=== PATIENT | female | born 1940 | race Caucasian/White ===

== ENCOUNTER → 2016-11-20 | Outpatient (CLI) | payer OTHER ==
--- NOTE | 2016-11-20 17:43 | MA ---
Screening Digital Mammogram With iCAD Analysis Clinical Indications: Routine screening. Her mother and maternal cousin were diagnosed with breast ca ncer in their 40s. Technique: Standard cephalocaudal projections are obtained. Digital breast tomosynthesis was performe d in the MLO projection with reconstruction at 1.0 mm slice thickness and composite MLO views reconst ructed. This examination is processed by the iCAD computer aided detection system. Comparison: November 2015, November 2014, November 2013, November 2012, November 2011, November 2010, 2009, October 2008. Breast density: Type B; Scattered fibroglandular densities. Findings: CAD was reviewed. No masses, suspicious calcifications or secondary signs of malignancy are seen. There has been no significant change in the appearance of either breast. Impression: Negative mammogram. BI-RADS 1. Recommendation: Routine mammographic screening in one year. [facility] will send a result letter to the patient. Negative mammography should not preclude additional workup of a clinically suspicious finding. The patient's information is entered into a reminder system with a target due date for her next mammo gram.
== END ==
LOC: FIMAGING 12:59
DX: Z12.31 Encounter for screening mammogram for malignant neoplasm of breast (principal); Z80.3 Family history of malignant neoplasm of breast
CPT/HCPCS: G0202

== ENCOUNTER 2017-04-22 22:50 | Emergency (ER) | payer OTHER ==
[2017-04-22 22:58] VITALS: BP 150/86; PULSE 77; RESP 16; TEMP 97.7; O2SAT 93
[2017-04-22] MEDS ORDERED: LIDOCAINE 2% JELLY 20 ML (UROJECT) TP ONE (23:08)
[2017-04-22] MEDS ORDERED: LIDOCAINE 2% JELLY 5 ML TUBE ONE (23:09)
--- NOTE | 2017-04-22 23:35 | EDPHY ---
H & P Stated Complaint: fall, skin tear Time Seen by Provider: 04/22/17 23:13 HPI/ROS: Chief Complaint: Fall, chin laceration, arm laceration HPI: 76-year-old woman with a history of atrial fibrillation, on Eliquis tripped and fell, landing on her left arm and striking her chin. She had no loss of consciousness. She sustained a skin tear to her left forearm as abrasion on her chin. She denies headache, no neck pain. No nausea or vomiting. No vision or hearing changes. No confusion. ROS: 10 point Review of Systems is negative except as noted in the HPI. PMH: Atrial fibrillation Medications: Eliquis Allergies: Morphine Social History: No smoking, occasional alcohol, no recreational drug use Family History: non-contributory Physical Exam: Gen: Awake, Alert, Airway Intact HEENT: Head: Atraumatic Eyes: PERRLA, EOMI Nose: No epistaxis Mouth: Normal dentition, Airway patent Face: There is a small abrasion to her chin. She has no mandibular tenderness. She has no pain with opening closing her jaw. States that her bite feels normal Neck: non-tender, no stepoff, Full ROM without pain Chest: non-tender, lungs CTA Heart: normal heart tones Abd: soft, non-tender, atraumatic Pelvis: non-tender, stable to AP and Lateral compression Back: atraumatic, no midline tenderness Ext: Left forearm has a skin tear approximately 2.5 cm. No bony deformity or tenderness., full ROM Skin: no rash Neuro: CN II-XII intact, Strength 5/5 in all extremities, sensation intact in all extremities - Personal History Current Tetanus/Diphtheria Vaccine: Yes Current Tetanus Diphtheria and Acellular Pertussis (TDAP): Yes - Medical/Surgical History Hx Asthma: No Hx Chronic Respiratory Disease: No Hx Diabetes: No Hx Cardiac Disease: Yes Hx Renal Disease: No Hx Cirrhosis: No Hx Alcoholism: No Hx HIV/AIDS: No Hx Splenectomy or Spleen Trauma: No Other PMH: pt sleeping per H&P in chart. Basal cell carcinoma, cellulitis, diverticulitis, thyroid cancer, hypertension, hypothyroidism, osteoarthritis, malignant thyroid gland neoplasm, afib - Social History Smoking Status: Never smoked Constitutional: Initial Vital Signs Temperature (C) 36.5 C 04/22/17 22:56 Heart Rate 77 04/22/17 22:56 Respiratory Rate 16 04/22/17 22:56 Blood Pressure 150/86 H 04/22/17 22:56 O2 Sat (%) 93 04/22/17 22:56 O2 Delivery Mode Room Air Allergies/Adverse Reactions: morphine Allergy (Verified 04/22/17 22:54) Home Medications: Medication Instructions Recorded Calcium Carb W/Vit D [Calcium Carb 500 mg PO BID 04/27/15 W/Vit D 500/200 (*)] Acetaminophen [Tylenol ES 500 mg 1,000 mg PO TID 07/24/15 (*)] Apixaban [Eliquis] 5 mg PO BID 07/24/15 Cholecalciferol Vit D3 [Vitamin D3 500 units PO DAILY 07/24/15 (*)] Diltiazem HCl [Cartia Xt] 120 mg PO DAILY 07/24/15 Levothyroxine [Synthroid 100 mcg 100 mcg PO DAILY06 07/24/15 (*)] Spironolactone [Aldactone] 50 mg PO DAILY@07/24/15 Acetaminophen [Tylenol 325mg (*)] 325 - 650 mg PO Q6 PRN #60 tab 08/09/15 Fish Oil 04/22/17 Medical Decision Making ED Course/Re-evaluation: 76-year-old woman status post trip and fall with a chin abrasion and left forearm skin avulsion. Patient is on Eliquis for atrial fibrillation. She has no headache. No nausea or vomiting. No symptoms suggestive of a head injury. She had no loss of consciousness. I have had a long good conversation with her regarding the risks of a intracranial bleed while on Eliquis. She does not want to have a CT scan at this time. I have instructed her that if she develops headache, confusion, nausea, vomiting, numbness, weakness, or any other symptomatology she should return immediately to the emergency depart for further evaluation. Patient states she will do so. Her forearm skin tear has been cleaned and dressed. She will follow up with primary care physician and 3- 4 days for re-evaluation. - Data Points Medications Given: Discontinued Medications Lidocaine (Uroject Lidocaine 2% Jelly) 20 ml TP EDNOW ONE Stop: 04/22/17 23:09 Last Admin: 04/22/17 23:13 Dose: 20 ml Departure - Departure Disposition: Home, Routine, Self-Care Clinical Impression: Skin tear, Abrasion Condition: Good Instructions: Skin Tear (ED), Abrasion (ED), Head Injury (ED) Additional Instructions: Return to the emergency department for headache, nausea, vomiting, confusion, numbness, weakness, or any other concerns. Follow up with your primary care physician in 2-4 days for re-evaluation of your arm injury and the abrasion on your chin. Referrals: Anh Chakraborty MD [Primary Care Provider] - As per Instructions
== END 2017-04-23 00:08 | disposition home or self-care (01) ==
DX: S51.812A Laceration without foreign body of left forearm, initial encounter (principal); S00.81XA Abrasion of other part of head, initial encounter; I10 Essential (primary) hypertension; Z85.828 Personal history of other malignant neoplasm of skin; Z85.850 Personal history of malignant neoplasm of thyroid; W01.198A Fall on same level from slipping, tripping and stumbling with subsequent striking against other object, initial encounter; Y99.8 Other external cause status; Y93.89 Activity, other specified

== ENCOUNTER → 2017-12-02 | Outpatient (CLI) | payer OTHER | LOC: FIMAGING 09:28 | PROVIDERS: ATTEND Internal Medicine | DX: Z12.31 Encounter for screening mammogram for malignant neoplasm of breast (principal); Z80.3 Family history of malignant neoplasm of breast ==

== ENCOUNTER → 2018-12-03 | Outpatient (CLI) | payer OTHER | LOC: FIMAGING 09:59 | PROVIDERS: ATTEND Internal Medicine | DX: Z12.31 Encounter for screening mammogram for malignant neoplasm of breast (principal); Z80.3 Family history of malignant neoplasm of breast ==